=== PATIENT | female | born 1990 | race Caucasian/White ===

== ENCOUNTER 2017-12-10 17:28 | Emergency (ER) | payer OTHER ==
[2017-12-10 17:49] VITALS: TEMP 98.1; BMI 37.4
--- NOTE | 2017-12-10 17:52 | PDOC ---
Rapid Medical Evaluation Time Seen by Provider: 12/10/17 17:45 Medical Evaluation: Allergies Allergy/AdvReac Type Severity Reaction Status Date / Time No Known Allergies Allergy Verified 10/16/16 11:57 12/10/17 17:45 The patient presents with a chief complaint of: Vaginal bleeding and cramping for 4 days. Unsure how far along she is I have performed a brief in-person evaluation of this patient; Pertinent physical exam findings: ambulatory, in no respiratory distress. TTP lower abdomen. No focal findings I have ordered the following: CBC, Beta hcg, type and screen, UA, UC, transvaginal US The patient will proceed to the ED for further evaluation.
[2017-12-10 18:07] LABS: BASO % 0.7 % (0-2.0); EOS % 2.6 % (0-4.5); HEMATOCRIT 39.4 % (32.4-45.2); HEMOGLOBIN 13.1 GM/dL (10.7-15.3); LYMPH % 25.8 % (8-40); MCH 28.2 pg (25.7-33.7); MCHC 33.3 g/dl (32.0-36.0); MEAN CELL VOLUME 84.7 fl (80-96); MEAN PLT VOLUME 8.7 fl (7.5-11.1); MONO % 6.2 % (3.8-10.2); NEUT % 64.7 % (42.8-82.8); PLATELET COUNT 243 K/MM3 (134-434); RBC 4.65 M/mm3 (3.60-5.2); RDW 13.5 % (11.6-15.6); WHITE BLOOD COUNT 9.2 K/mm3 (4.0-10.0)
[2017-12-10 18:36] LABS: URINE APPEARANCE CLOUDY; URINE BILIRUBIN NEGATIVE (NEGATIVE); URINE BLOOD 3+ (NEGATIVE); URINE COLOR YELLOW; URINE GLUCOSE (UA) NEGATIVE (NEGATIVE); URINE KETONE NEGATIVE (NEGATIVE); URINE LEUK ESTERASE TRACE (NEGATIVE); URINE NITRITE NEGATIVE (NEGATIVE); URINE PROTEIN NEGATIVE (NEGATIVE); URINE UROBILINOGEN NEGATIVE mg/dL (0.2-1.0)
[2017-12-10 18:57] LABS: ALBUMIN 3.1 g/dl (3.4-5.0); ANION GAP 12 (8-16); BILIRUBIN,TOTAL 0.1 mg/dL (0.2-1.0); BLOOD UREA NITROGEN 13 mg/dL (7-18); CALCIUM 9.1 mg/dL (8.5-10.1); CHLORIDE 104 mmol/L (98-107); CO2 21 mmol/L (21-32); CREATININE 0.7 mg/dL (0.55-1.02); GLUCOSE,RANDOM 95 mg/dL (74-106); POTASSIUM 3.9 mmol/L (3.5-5.1); SGOT/AST 7 U/L (15-37); SGPT/ALT 18 U/L (12-78); SODIUM 137 mmol/L (136-145); TOT PROT 6.8 g/dl (6.4-8.2)
[2017-12-10 18:58] LABS: ALK PHOS 82 U/L (45-117)
[2017-12-10 19:11] LABS: EPI CELLS MODERATE /HPF (FEW); URINE BACTERIA RARE /hpf (NONE SEEN); URINE CASTS 2 /hpf; URINE CRYSTALS FEW /hpf (NONE SEEN)
--- NOTE | 2017-12-10 19:14 | PDOC ---
History of Present Illness - General Chief Complaint: Vaginal Bleeding Stated Complaint: VAGINAL BLEEDING/7 WKS Time Seen by Provider: 12/10/17 17:45 - History of Present Illness Initial Comments: 12/10/17 19:29 The patient is a 23 year old female, , approximately 7 weeks by LMP and home tests, who presents to the ED complaining of approximately 4 days of suprapubic cramping and vaginal bleeding. She states she noticed a small amount of bleeding 4 days ago which has been progressively decreasing. The patient denies any fever or chills. She denies nausea, vomiting , or diarrhea. She denies any urinary complaints. Past History - Past Medical History Allergies/Adverse Reactions: Allergies Allergy/AdvReac Type Severity Reaction Status Date / Time No Known Allergies Allergy Verified 12/10/17 17:45 Home Medications: Ambulatory Orders Nitrofurantoin Monohyd/M-Cryst [Macrobid -] 100 mg PO BID #14 capsule 12/10/17 Asthma: Yes COPD: No - Reproductive History Is Patient Now?: Yes (#): 2 Para: 1 - Immunization History Immunization Up to Date: Yes - Suicide/Smoking/Psychosocial Hx Smoking Status: No Smoking History: Never smoked Number of Cigarettes Smoked Daily: 0 Hx Alcohol Use: No Drug/Substance Use Hx: No Substance Use Type: None Review of Systems - Review of Systems Comments:: 12/10/17 19:29 "GENERAL/CONSTITUTIONAL: No fever or chills. No weakness. HEAD, EYES, EARS, NOSE AND THROAT: No change in vision. No ear pain or discharge. No sore throat. CARDIOVASCULAR: No chest pain or shortness of breath. RESPIRATORY: No cough, wheezing, or hemoptysis. GASTROINTESTINAL: No nausea, vomiting, diarrhea or constipation. GENITOURINARY: +Vaginal spotting, No dysuria, frequency, or change in urination. MUSCULOSKELETAL: No joint or muscle swelling or pain. No neck or back pain. SKIN: No rash NEUROLOGIC: No headache, vertigo, loss of consciousness, or change in strength/ sensation. ENDOCRINE: No increased thirst. No abnormal weight change. HEMATOLOGIC/LYMPHATIC: No anemia, easy bleeding, or history of blood clots. ALLERGIC/IMMUNOLOGIC: No hives or skin allergy. " *Physical Exam - Vital Signs Last Vital Signs Temp Pulse Resp BP Pulse Ox 98.1 F 95 H 19 114/65 98 12/10/17 17:45 12/10/17 17:45 12/10/17 17:45 12/10/17 17:45 12/10/17 17:45 - Physical Exam Comments: 12/10/17 19:30 "GENERAL: Awake, alert, and fully oriented, in no acute distress HEAD: No signs of trauma EYES: PERRLA, EOMI, sclera anicteric, conjunctiva clear ENT: Auricles normal inspection, hearing grossly normal, nares patent, oropharynx clear without exudates. Moist mucosa NECK: Nontender, no stepoffs, Normal ROM, supple, no lymphadenopathy, JVD, or masses LUNGS: Breath sounds equal, clear to auscultation bilaterally. No wheezes, and no crackles HEART: Regular rate and rhythm, normal S1 and S2, no murmurs, rubs or gallops ABDOMEN: Soft, nontender, normoactive bowel sounds. No guarding, no rebound. No masses EXTREMITIES: Normal range of motion, no edema. No clubbing or cyanosis. No cords, erythema, or tenderness NEUROLOGICAL: Cranial nerves II through XII intact. 5/5 strength and sensation in all extremities, Normal speech, normal gait, normal cerebellar function SKIN: Warm, Dry, normal turgor, no rashes or lesions noted. : os closed, no blood in vault, no CMT, no adnexal masses or tenderness ED Treatment Course - LABORATORY CBC & Chemistry Diagram: 12/10/17 17:54 12/10/17 17:54 - ADDITIONAL ORDERS Additional order review: Laboratory Results 12/10/17 12/10/17 18:20 17:54 Sodium 137 Potassium 3.9 Chloride 104 Carbon Dioxide 21 Anion Gap 12 BUN 13 Creatinine 0.7 Creat Clearance w eGFR > 60 Random Glucose 95 Calcium 9.1 Total Bilirubin 0.1 L AST 7 L ALT 18 Alkaline Phosphatase 82 Total Protein 6.8 Albumin 3.1 L Beta HCG, Quant 98284.0 Urine Color Yellow Urine Appearance Cloudy Urine pH 5.0 D Ur Specific [place] 1.018 Urine Protein Negative Urine Glucose (UA) Negative Urine Ketones Negative Urine Blood 3+ H Urine Nitrite Negative Urine Bilirubin Negative Urine Urobilinogen Negative Ur Leukocyte Esterase Trace 12/10/17 17:54 RBC 4.65 MCV 84.7 MCHC 33.3 RDW 13.5 MPV 8.7 Neutrophils % 64.7 Lymphocytes % 25.8 Monocytes % 6.2 Eosinophils % 2.6 Basophils % 0.7 Medical Decision Making - Medical Decision Making 12/10/17 19:31 27 F with + UPT at home, presenting with vaginal spotting and cramps. Ectopic vs spontaneous Ab. - Labs, HCG, T&S - TVUS 12/10/17 19:39 TVUS shows viable 6 week old . Pt with O+ blood UA with possible UTI, will cover with macrobid. Pt is well appearing, with normal vitals. Clinically stable for DC at this time. I discussed the physical exam findings, ancillary test results and final diagnoses with the patient. I answered all of the patient's questions. The patient was satisfied with the care received and felt comfortable with the discharge plan and treatment plan. The patient agrees to follow up with the primary care physician within 24-72 hours. *DC/Admit/Observation/Transfer Diagnosis at time of Disposition: Vaginal bleeding during - Discharge Dispostion Disposition: HOME - Prescriptions Prescriptions: Nitrofurantoin Monohyd/M-Cryst [Macrobid -] 100 mg PO BID #14 capsule - Referrals Referrals: Jessie Boyer MD [Staff Physician] - - Patient Instructions Printed Discharge Instructions: DI for Vaginal Bleeding During Additional Instructions: You have a urine infection. Take the antibiotics as prescribed to treat it. Your ultrasound showed a that is 6 weeks old. Call the above number to make a follow up with an computer technical support specialist. You will need care. If you experience worsening pain, bleeding, or any other concerning symptoms, return to the ER immediately. - Post Discharge Activity - Attestations Physician Attestion: 12/10/17 19:39 I, Dr. Peter Williamson MD, attest that this document has been prepared under my direction and personally reviewed by me in its entirety. I further attest, that it accurately reflects all work, treatment, procedures and medical decision -making performed by me.
[2017-12-10 20:20] VITALS: BP 109/68; PULSE 86
== END 2017-12-10 19:55 | disposition home or self-care (01) ==
LOC: JER 17:28
DX: O26.891 Other specified pregnancy related conditions, first trimester (principal); O20.8 Other hemorrhage in early pregnancy; Z3A.01 Less than 8 weeks gestation of pregnancy
CPT/HCPCS: 36415; 76801-TC; 80053; 81003; 81015; 84702; 85025; 86850; 86900; 86901; 87086; 99283-25

== ENCOUNTER 2018-07-29 14:30 | Inpatient (IN) | payer OTHER ==
[2018-08-02] MEDS: ELECTROLYTE-148 SOLN 1,000 ML IV SCH ×2 (10:00→11:06)
[2018-08-02] MEDS ORDERED: CITRIC ACID/SODIUM CITRATE 30 ML UNIT-DOSE CUP PO ONE (10:20)
[2018-08-02] MEDS ORDERED: CEFAZOLIN 2 GM in DEXTROSE 5%-WATER - 50 ML IVPB ONE (10:23)
--- NOTE | 2018-08-02 10:27 | HP ---
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: Alzheimer's, CVA, Dementia, Migraine, Multiple Sclerosis, Peripheral Neuropathy, Parkinson's, Seizure, Syncope, TIA, Vertigo, Other Cardiovascular: No: AFIB, Aneurysm, Aortic Insufficiency, Aortic Stenosis, CAD, CHF, Deep Vein Thrombosis, HTN, Hyperlipdemia, DE, Mitral Insufficiency, Mitral Stenosis, Murmur, Pulmonary Hypertension, Other Pulmonary: No: Asthma, Bronchitis, Cancer, COPD, O2 Dependent, Pneumonia, Previously Intubated, Pulmonary Embolus, Pulmonary Fibrosis, Sleep Apnea, Other Gastrointestinal: No: Ascites, Cancer, Constipation, Crohn's Disease, Diverticulitis, Diverticulosis, Esophageal Varices, Gastritis, GERD, GI Bleed, Hemorrhoids, Hiatal Hernia, Inflamatory Bowel Disease, Irritable Bowel Disease, Pancreatitis, Peptic Ulcer Disease, Ulcerative Colitis, Other Hepatobiliary: No: Cirrhosis, Cholelithiasis, Cholecystitis, Choledocholithiasis , Hepatitis A, Hepatitis B, Hepatitis C, Other - Past Surgical History Hx Myomectomy: No Hx Transabdominal Cerclage: No - Smoking History Smoking history: Never smoked Aproximately how many cigarettes per day: 0 - Alcohol/Substance Use Hx Alcohol Use: No Home Medications - Allergies Allergies/Adverse Reactions: Allergies Allergy/AdvReac Type Severity Reaction Status Date / Time No Known Allergies Allergy Verified 12/10/17 17:45 - Home Medications Home Medications: Ambulatory Orders Nitrofurantoin Monohyd/M-Cryst [Macrobid -] 100 mg PO BID #14 capsule 12/10/17 Review of Systems - Review of Systems Constitutional: denies: No Symptoms, Chills, Diaphoresis, Fever, Lethargy, Loss of Appetite, Malaise, Night Sweats, Unintentional Wgt. Loss, Weakness, Other Eyes: denies: No Symptoms, Blind Spots, Blurred Vision, Double Vision, Eye Pain , Floaters, Photophobia, Recent Change in Vision, Other HENT: denies: No Symptoms, Difficult Swallowing, Ear Discharge, Ear Pain, Epistaxis, Gingival Bleeding, Hearing Loss, Mouth Swelling, Nasal Congestion, Ocular Prosthesis, Throat Pain, Toothache, Ringing in Ears, Other Neck: denies: No Symptoms, Decreased ROM, Lumps, Pain on Movement, Stiffness, Swollen Glands, Tenderness, Other Cardiovascular: denies: No Symptoms, Chest Pain, Edema, Palpitations, Shortness of Breath, Other Respiratory: denies: No Symptoms, Cough, Exercise Intolerance, Hemoptysis, Orthopnea, PND, Snoring, SOB, SOB on Exertion, Wheezing, Other Gastrointestinal: denies: No Symptoms, Abdominal Pain, Bloating, Constipation, Diarrhea, Dysphagia, Indigestion, Melena, Nausea, Rectal Bleeding, Vomiting, Vomiting Blood, Other Genitourinary: denies: No Symptoms, Burning, Discharge, Dysuria, Flank Pain, Frequency, Hematuria, Incontinence, Lesions, Menses, Pain, Testicular Mass, Testicular Pain, Testicular Swelling, Urgency, Vaginal Bleeding, Other Physical Exam - Maternity - Abdominal Exam/OB Number of Fetuses: Single Presentation: Vertex Contractions: Yes Regularity: Irregular Intensity: Unaware Monitor Mode: External Category: I Decelerations: None - Vaginal Exam/OB Vaginal Bleediing: No Speculum Exam: No - Physical Exam Edema: Yes Problem List - Problems (1) H/O: Code(s): Z98.891 - HISTORY OF UTERINE SCAR FROM PREVIOUS SURGERY Assessment/Plan 28yo @ 39wks here for RLTCS Admit to L&D NPO, IVFs Ancef 2g SCDs Discussed risk of procedure- including bleeding requiring transfusion, infection and injury to bladder/bowel/tubes/ovaries/nerves/arteries/veins. Importance of early ambulation to avoid DVTs discussed. All questions answered. Consents signed. Nicky Main MD
[2018-08-02] MEDS ORDERED: GENTAMICIN INJECTION 400 MG in SODIUM CHLORIDE 100 ML IVPB ONE (10:39)
[2018-08-02 11:04] VITALS: BMI 44.2
[2018-08-02 11:23] LABS: INR 0.97 (0.83-1.09); PROTHROMBIN TIME (PATIENT) 11.4 SEC (9.7-13.0)
[2018-08-02 11:26] LABS: ACTIVATED PTT 27.2 SECONDS (25.2-36.5)
[2018-08-02] MEDS ORDERED: ONDANSETRON 4 MG/2 ML VIAL IVPUSH PRN (11:31)
[2018-08-02] MEDS ORDERED: morphine SULFATE/Preservative Free 0.5 MG/ML (1cc Syringe) EP ONE (11:31)
[2018-08-02] MEDS ORDERED: IBUPROFEN 600 MG TABLET (FP) PO PRN (11:33)
[2018-08-02] MEDS ORDERED: CLINDAMYCIN PHOSPHATE 600 MG/4 ML VIAL ONE (11:43)
[2018-08-02] MEDS ORDERED: GENTAMICIN SO4 80 MG/2 ML VIAL ONE (11:44)
[2018-08-02] MEDS ORDERED: OXYTOCIN 20 UNITS in 0.9% NS 20 UNIT/1,000 ML INFUS.BAG IV ONE ×2 (11:45→13:34)
[2018-08-02] MEDS ORDERED: GENTAMICIN INJECTION 160 MG in SODIUM CHLORIDE 100 ML IVPB ONE (12:15)
[2018-08-02] MEDS ORDERED: CLINDAMYCIN 600MG PREMIX IVPB 600 MG/50 ML BAG IVPB ONE (12:15)
[2018-08-02] MEDS ORDERED: OXYTOCIN 10 UNITS/ML VIAL ONE (12:33)
[2018-08-02] MEDS ORDERED: METHYLERGONOVINE MALEATE 0.2 MG/1 ML AMP IM PRN (13:23)
[2018-08-02] MEDS ORDERED: BENZOCAINE 20% 57 GM BOTTLE TP PRN (13:23)
[2018-08-02] MEDS ORDERED: WITCH HAZEL 50% (TUCKS) 40 PAD/JAR PAD TP PRN (13:23)
[2018-08-02] MEDS ORDERED: BENZOCAINE 28 GM HEMORRHOIDAL OINTMENT TP PRN (13:23)
--- NOTE | 2018-08-02 13:23 | OP ---
Operative Note - Note: Operative Date: 08/02/18 Pre-Operative Diagnosis: 39week , Prior , Elective Repeat C- Sections Operation: Repeat Low Transverse Delivery Findings: VMI, ALLISON, no nuchal or meconium. Apgars 9/9. Weight pending. Tubes and ovaries not seen secondary to dense adhesions Implants: surgicele Post-Operative Diagnosis: Same as Pre-op Surgeon: Candida Main Government Relations Analyst: Ortega Hope Anesthesia: Spinal Estimated Blood Loss (mls): 900
[2018-08-02] MEDS ORDERED: IBUPROFEN 800 MG/8 ML IJ IVPB ONE (14:34)
[2018-08-02] MEDS: IBUPROFEN 800 MG/8 ML IJ IVPB PRN ×2 (14:45→22:02)
[2018-08-02] MEDS ORDERED: ALBUTEROL SO4 8 GM HFA INHALER IH PRN (16:33)
[2018-08-02] MEDS: FERROUS SO4 325 MG TABLET (FP) PO SCH (22:00)
[2018-08-03] MEDS: SIMETHICONE 80 MG TAB.CHEW (FP) PO PRN ×4 (05:53→22:37)
[2018-08-03] MEDS: IBUPROFEN 600 MG TABLET (FP) PO PRN ×4 (05:54→22:37)
[2018-08-03] MEDS: ACETAMINOPHEN 325 MG TABLET (FP) PO PRN ×4 (05:56→22:38)
[2018-08-03] MEDS: FERROUS SO4 325 MG TABLET (FP) PO SCH ×2 (10:10→21:25)
[2018-08-03] MEDS: PRENATAL VITAMINS W/ FOLIC ACID TABLET (FP) PO SCH (10:11)
--- NOTE | 2018-08-03 10:54 | PN ---
Progress Note (short form) - Note Progress Note: POD #1 - s/p under spinal anesthesia with duramorph. VSS. Pt. doing well, walking about the room comfortably. C/o some itching - Benadryl given. No apparent anesthetic complications noted. Continue current care.
--- NOTE | 2018-08-03 10:58 | PN ---
Post Progress Note - Subjective Subjective: 28 yo Para 2 status post repeat , seen and evaluated. She's lying comfortably in bed. No complaints. Post Day: 1 Type of Delivery: Repeat C/S Vital Signs: Vital Signs Temperature 98.3 F 08/03/18 08:26 Pulse Rate 89 08/03/18 08:26 Respiratory Rate 20 08/03/18 09:58 Blood Pressure 106/55 L 08/03/18 08:26 O2 Sat by Pulse Oximetry (%) 100 08/02/18 14:15 Breast Exam: Yes: Soft Uterus: Yes: Fundus Firm Incision: Yes: Dressing dry and intact Abdomen/GI: Yes: Abdomen soft, Tolerating PO Lochia: Yes: Rubra Lochia, amount: Small Extremities: Yes: Calves non-tender Activity: Ambulating Problem List - Problems (1) Status post repeat low transverse section Code(s): Z98.891 - HISTORY OF UTERINE SCAR FROM PREVIOUS SURGERY Assessment/Plan Status post repeat Stable Ambulation Analgesia as needed Continue routine post op care
[2018-08-03] MEDS ORDERED: BISACODYL 10 MG SUPP.RECT RC PRN (13:23)
[2018-08-03] MEDS: diphenhydrAMINE HCL 25 MG CAPSULE (FP) PO PRN ×2 (14:40→21:26)
[2018-08-03] MEDS: ELECTROLYTE-148 SOLN 1,000 ML IV SCH (21:23)
[2018-08-03] MEDS: oxyCODONE HCL 5 MG TABLET PO PRN (22:38)
[2018-08-04] MEDS: IBUPROFEN 600 MG TABLET (FP) PO PRN ×4 (02:32→22:48)
[2018-08-04] MEDS: SIMETHICONE 80 MG TAB.CHEW (FP) PO PRN ×5 (02:32→22:47)
[2018-08-04] MEDS: ACETAMINOPHEN 325 MG TABLET (FP) PO PRN ×3 (02:33→13:49)
[2018-08-04] MEDS: oxyCODONE HCL 5 MG TABLET PO PRN ×4 (02:33→22:47)
--- NOTE | 2018-08-04 08:11 | PN ---
Post Progress Note - Subjective Subjective: 28 yo Para 2 status post repeat , seen and evaluated. She's ambulating. Doing well. Post Day: 2 Type of Delivery: Repeat C/S Vital Signs: Vital Signs Temperature 98.7 F 08/03/18 22:00 Pulse Rate 114 H 08/03/18 22:00 Respiratory Rate 18 08/03/18 22:00 Blood Pressure 125/75 08/03/18 22:00 O2 Sat by Pulse Oximetry (%) 100 08/02/18 14:15 Breast Exam: Yes: Soft Uterus: Yes: Fundus Firm Incision: Yes: Dressing dry and intact Lochia: Yes: Rubra Lochia, amount: Small Extremities: Yes: Calves non-tender Activity: Ambulating Problem List - Problems (1) Status post repeat low transverse section Code(s): Z98.891 - HISTORY OF UTERINE SCAR FROM PREVIOUS SURGERY Assessment/Plan Status post repeat Stable Ambulation Analgesia as needed Continue routine post op care
[2018-08-04] MEDS ORDERED: FLU VACCINE QUAD 60 MCG/0.5 ML (MDV 18-19) IM ONE (10:00)
[2018-08-04] MEDS: PRENATAL VITAMINS W/ FOLIC ACID TABLET (FP) PO SCH (10:30)
[2018-08-04] MEDS: FERROUS SO4 325 MG TABLET (FP) PO SCH ×2 (10:30→21:09)
--- NOTE | 2018-08-04 13:55 | PN ---
Post Progress Note Type of Delivery: Repeat C/S Vital Signs: Vital Signs Temperature 98.2 F 08/04/18 08:47 Pulse Rate 102 H 08/04/18 08:47 Respiratory Rate 20 08/04/18 08:47 Blood Pressure 116/75 08/04/18 08:47 O2 Sat by Pulse Oximetry (%) 100 08/02/18 14:15 Uterus: Yes: Fundus Firm Incision: Yes: Dressing dry and intact Abdomen/GI: Yes: Abdomen soft, Passing flatus, Tolerating PO Lochia, amount: Small Extremities: Yes: Edema Activity: Ambulating (POD#1 from RLTCS. Some incisional discomfort. +flatus. No BM) Problem List - Problems (1) H/O: Code(s): Z98.891 - HISTORY OF UTERINE SCAR FROM PREVIOUS SURGERY Assessment/Plan 28yo s/p RLTCS, POD#2 Routine PP care OOB, ambulate PO pain control Possible d/c tomorrow if stable, pain controlled Nicky Main MD
[2018-08-04] MEDS ORDERED: DOCUSATE SODIUM 100 MG CAPSULE (FP) PO PRN (14:28)
[2018-08-04] MEDS: SENNOSIDES 8.6MG TABLET (FP) PO SCH (21:09)
[2018-08-05] MEDS: ACETAMINOPHEN 325 MG TABLET (FP) PO PRN ×3 (00:49→12:49)
[2018-08-05] MEDS: oxyCODONE HCL 5 MG TABLET PO PRN ×4 (05:00→22:48)
[2018-08-05] MEDS: SIMETHICONE 80 MG TAB.CHEW (FP) PO PRN ×5 (05:00→22:49)
[2018-08-05] MEDS: IBUPROFEN 600 MG TABLET (FP) PO PRN ×5 (05:01→22:48)
--- NOTE | 2018-08-05 07:24 | PN ---
Post Progress Note - Subjective Subjective: No issues overnight. Ambulating. Pain controlled with meds Type of Delivery: Repeat C/S Vital Signs: Vital Signs Temperature 98.2 F 08/04/18 21:00 Pulse Rate 104 H 08/04/18 21:00 Respiratory Rate 20 08/04/18 21:00 Blood Pressure 123/81 08/04/18 21:00 O2 Sat by Pulse Oximetry (%) 100 08/02/18 14:15 Uterus: Yes: Fundus below umbilicus Incision: Yes: Sutures intact Abdomen/GI: Yes: Abdomen soft Lochia: Yes: Rubra Lochia, amount: Small Extremities: Yes: Edema Activity: Ambulating Problem List - Problems (1) H/O: Code(s): Z98.891 - HISTORY OF UTERINE SCAR FROM PREVIOUS SURGERY Assessment/Plan 28yo s/p RLTCS, POD#3 Routine PP care OOB, ambulate PO pain control Anticipate d/c to home by POD#4 Nicky Main MD
[2018-08-05 08:03] LABS: BASO % 0.6 % (0-2.0); EOS % 4.3 % (0-4.5); HEMATOCRIT 27.4 % (32.4-45.2); HEMOGLOBIN 8.7 GM/dL (10.7-15.3); LYMPH % 19.4 % (8-40); MCH 26.3 pg (25.7-33.7); MCHC 31.7 g/dl (32.0-36.0); MEAN PLT VOLUME 8.4 fl (7.5-11.1); MONO % 5.6 % (3.8-10.2); NEUT % 70.1 % (42.8-82.8); PLATELET COUNT 191 K/MM3 (134-434); RBC 3.29 M/mm3 (3.60-5.2); RDW 16.5 % (11.6-15.6); WHITE BLOOD COUNT 7.5 K/mm3 (4.0-10.0)
[2018-08-05] MEDS: FERROUS SO4 325 MG TABLET (FP) PO SCH ×2 (10:19→21:30)
[2018-08-05] MEDS: PRENATAL VITAMINS W/ FOLIC ACID TABLET (FP) PO SCH (10:19)
[2018-08-05] MEDS: BENZOCAINE/MENTH/CETYLPYRD CL 1 EACH LOZENGE MM PRN (19:48)
[2018-08-05] MEDS: SENNOSIDES 8.6MG TABLET (FP) PO SCH (21:30)
[2018-08-06] MEDS: SIMETHICONE 80 MG TAB.CHEW (FP) PO PRN ×3 (04:10→14:15)
[2018-08-06] MEDS: IBUPROFEN 600 MG TABLET (FP) PO PRN ×3 (04:11→14:16)
[2018-08-06] MEDS: ACETAMINOPHEN 325 MG TABLET (FP) PO PRN (04:11)
[2018-08-06] MEDS: oxyCODONE HCL 5 MG TABLET PO PRN ×3 (04:11→14:15)
[2018-08-06] MEDS: BENZOCAINE/MENTH/CETYLPYRD CL 1 EACH LOZENGE MM PRN ×2 (04:17→09:49)
[2018-08-06] MEDS: PRENATAL VITAMINS W/ FOLIC ACID TABLET (FP) PO SCH (09:47)
[2018-08-06] MEDS: FERROUS SO4 325 MG TABLET (FP) PO SCH (09:47)
[2018-08-06 12:47] VITALS: BP 132/80; PULSE 96; TEMP 98.2
--- NOTE | 2018-08-11 17:38 | PATH ---
Surgical Pathology Report Patient Name: SYEDA العلي Med. Rec. #: [id number] /Age/Gender: 1990 (Age: 28) / F Account: [id number] Location: 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 Electronically Signed Patria Johnston M.D. Gross Description The specimen is received fresh labeled placenta and is a 515 gram, 16.0 x 15.0 x 3.4 cm. placenta with attached membranes and umbilical cord. The attached membranes are stein, translucent with focal opacities and insert marginally. The umbilical cord measures 42 cm. in length and averages 1.0 cm. in diameter. The cord inserts eccentrically, 3 cm. to the nearest margin. No true knots or strictures are identified. Cut surface of the umbilical cord reveals 3 vessels. The surface is pretty-blue with minimal fibrin deposition and appropriate caliber vessels. The maternal surface is red-brown with focal defects. Sectioning reveals red-brown, spongy parenchyma. No lesions are identified. Vice President Consulting Services sections are submitted in three cassettes as follows: 1- membrane rolls and umbilical cord; 2-3- full thickness sections of placenta. /08/10/2018 [facility]08/10/2018
--- NOTE | 2018-08-18 16:17 | DS ---
Physical Examination Vital Signs: Vital Signs Temperature 98.2 F 08/06/18 09:00 Pulse Rate 96 H 08/06/18 09:00 Respiratory Rate 20 08/06/18 09:00 Blood Pressure 132/80 08/06/18 09:00 O2 Sat by Pulse Oximetry (%) 100 08/02/18 14:15 Constitutional: Yes: Well Nourished, No Distress, Calm Eyes: Yes: WNL, Conjunctiva Clear, EOM Intact Respiratory: Yes: WNL, Regular, CTA Bilaterally Gastrointestinal: Yes: WNL, Normal Bowel Sounds. No: Soft, Abdomen, Obese, Ascites, Distention, Hematemesis, Hemorrhoids, Hepatomegaly, Hernia, Hyperactive Bowel Sounds, Hypoactive Bowel Sounds, Melena, Palpable Mass, Pulsatile Mass, Rectal Bleeding, Splenomegaly, Tenderness, Tenderness, Epigastrium, Tenderness, Rebound, Vomiting, Other Extremities: Yes: WNL Edema: Yes Labs: CBC, BMP 08/05/18 07:15 Discharge Summary Reason For Visit: C SECTION Procedures: Principal: Hospital Course: Patient presented for a repeat Delivery. She had an uncomplicated course and met all milestones. She was discharged home on POD#4 Condition: Good - Instructions Diet, Activity, Other Instructions: Pt instructed to follow up in clinic in 2 weeks. Disposition: HOME - Home Medications Comprehensive Discharge Medication List: Ambulatory Orders Vitamins (Sjr) - 1 tab PO DAILY 08/02/18 Ibuprofen 600 mg PO Q6H PRN #30 tablet 08/05/18 Oxycodone HCl/Acetaminophen [Percocet 5-325 mg Tablet -] 1 - 2 tab PO Q6H PRN # 20 tab MDD 20 08/05/18
--- NOTE | 2018-08-18 18:32 | OP ---
DATE OF OPERATION: 08/02/2018 PREOPERATIVE DIAGNOSES: A 39-week , prior section, desires elective repeat section. POSTOPERATIVE DIAGNOSES: A 39-week , prior section, desires elective repeat section. PROCEDURE: Repeat low-transverse delivery. SURGEON: Candida Main MD BAKER BISCUIT: ANTOINE Linder ANESTHESIA: Spinal. IV FLUIDS: Per Anesthesia record. ESTIMATED BLOOD LOSS: 900. URINE: 100 mL of clear urine at the end of procedure. FINDINGS: Viable male infant, ALLISON position. No nuchal or meconium. Apgars 9 and 9. Weight was pending at time of procedure. Tubes and ovaries not seen secondary to dense adhesions. COMPLICATIONS: None. CONDITION: Stable to recovery. NATURE OF PROCEDURE: After appropriate consents were signed, patient was taken to the operating room, where spinal anesthesia was administered. She was placed in supine position with left lateral tilt. Dubose catheter was placed. Abdomen was prepped and draped in the normal sterile fashion. A Pfannenstiel skin incision was made through the prior Pfannenstiel and carried down to the underlying layers, in which the fascia was nicked in the midline with a scalpel. The fascia was then extended bilaterally with the Grimm scissors. The inferior aspect of the fascia was grasped with a Taya clamp, tented upward, and the rectus muscles were dissected off bluntly and with the Grimm scissors. Attention was then paid to the superior aspect, which was taken down in a similar fashion. The muscles were in the midline after elevating them and gentle dissection with the scalpel needle. The peritoneum was entered bluntly. Adhesions from the anterior abdominal wall to the uterus on the lateral edges were noted. The uterus was incised in a low transverse fashion and extended manually. Clear amniotic fluid was noted. The 's head was delivered atraumatically without any difficulty, as was the remaining body. The cord was clamped and cut. The was handed off to the pediatric staff. The placenta was removed manually. The uterus was cleared of all clot and debris. The hysterotomy was closed with a 0 Vicryl in a single layer. After a single layer was placed, bleeding edges were still noted on both edges of the hysterotomy and were reinforced with additional suture in addition to Bovie for hemostasis. Surgicel was placed over the hysterotomy to help maintain hemostasis. Neither ovary or tube could be appreciated due to adhesions and lack of mobility of the uterus, and inability to palpate the adnexa secondary to adhesions. Rectus muscles were reapproximated with 2-0 chromic. The fascia was closed with 0 Vicryl. Skin was closed with a 4-0 Vicryl as well. Appropriate dressings and bandages were placed. The patient received 2 g of Ancef at the start of the procedure. All lap and sponge counts were correct x3. The patient was taken to the recovery room in stable condition. MD RAHEEL LUNDBERG/[id number]
== END 2018-08-06 15:45 | disposition home or self-care (01) | DRG 540 ==
LOC: JLDR 08-02 09:28 → J3W 08-02 15:00
PROVIDERS: ADMIT Obstetrics & Gynecology; ATTEND Obstetrics & Gynecology
PROC: 10D00Z1 Extraction of Products of Conception, Low, Open Approach (ICD-10-PCS; principal; 2018-08-02)
DX: O34.211 Maternal care for low transverse scar from previous cesarean delivery (principal); K66.0 Peritoneal adhesions (postprocedural) (postinfection); Z3A.39 39 weeks gestation of pregnancy; Z37.0 Single live birth
CPT/HCPCS: 36415; 85025; 85610; 85730; 86593; 88307-TC; 90688; G0008

== ENCOUNTER 2018-12-02 15:55 | Emergency (ER) | payer OTHER ==
[2018-12-02 16:08] VITALS: BP 149/93; PULSE 116; TEMP 98.8; BMI 38.2
--- NOTE | 2018-12-02 16:12 | PDOC ---
Rapid Medical Evaluation Chief Complaint: Cold Symptoms Time Seen by Provider: 12/02/18 16:09 Medical Evaluation: Allergies Allergy/AdvReac Type Severity Reaction Status Date / Time cefazolin Allergy Swelling Verified 12/02/18 16:04 Vital Signs Temp Pulse Resp BP Pulse Ox 98.8 F 116 H 16 149/93 96 12/02/18 16:05 12/02/18 16:05 12/02/18 16:05 12/02/18 16:05 12/02/18 16:05 12/02/18 16:09 I have performed a brief in-person evaluation of this patient. The patient presents with a chief complaint of: h/o Asthma present with 6 weeks h/o persistent dry cough, wheezing, nasal congestion, runny nose and tactile fever. report using rescue inhaler prior to ED visit Pertinent physical exam findings: A&O x 3. mild diffused wheezing. no respiratory distress. heart RRR I have ordered the following: hcg, CXR The patient will proceed to the ED for further evaluation. Discharge Disposition - Diagnosis URI (upper respiratory infection) Qualifiers: URI type: unspecified URI Qualified Code(s): J06.9 - Acute upper respiratory infection, unspecified - Discharge Dispostion Condition at time of disposition: Stable - Referrals - Patient Instructions - Post Discharge Activity
--- NOTE | 2018-12-02 17:43 | PDOC ---
History of Present Illness - General Chief Complaint: Cold Symptoms Stated Complaint: COLD SYMPTOMS Time Seen by Provider: 12/02/18 16:09 History Source: Patient Exam Limitations: No Limitations - History of Present Illness Initial Comments: 12/02/18 17:43 28 year old female 3 months presents with asthma exacerbation, fever , chills, and chest discomfort from forcefully coughing x 6 weeks. Reports using otc medication. Also sick contact from 3 month old that is also sick. 12/02/18 19:13 Timing/Duration: reports: getting worse Severity: reports: moderate Possible Cause: Yes: other (sick contact ) Modifying Factors: improves with: albuterol nebulizer, coughing Associated Symptoms: reports: cough, fever/chills, nasal congestion, nasal drainage, wheezing Aspirin Received prior to arrival: Yes: no aspirin today ASA Contraindications(Core Measure): No: Allergy Beta Taylor Contraindications(Core Measure): Yes: Not Prescribed Beta Taylor Given by EMS(Core Measure): No Beta Taylor Taken at Home(Core Measure): No Beta Taylor Not Indicated at this Time(Core Measure): No Past History - Travel Traveled outside of the country in the last 30 days: No Close contact w/someone who was outside of country & ill: No - Past Medical History Allergies/Adverse Reactions: Allergies Allergy/AdvReac Type Severity Reaction Status Date / Time cefazolin Allergy Swelling Verified 12/02/18 16:04 Home Medications: Ambulatory Orders Azithromycin [Zithromax 250mg Tablets -] 250 mg PO UTDICT #6 tab 12/02/18 Ibuprofen 600 mg PO TID #20 tablet 12/02/18 Prednisone [Deltasone] 40 mg PO DAILY #4 tablet 12/02/18 Asthma: Yes (last attack years ago) Cancer: No Cardiac Disorders: No COPD: No Diabetes: No HTN: No Seizures: No Thyroid Disease: No - Reproductive History (#): 2 Para: 1 - Immunization History Immunization Up to Date: Yes - Suicide/Smoking/Psychosocial Hx Smoking Status: No Smoking History: Never smoked Have you smoked in the past 12 months: No Number of Cigarettes Smoked Daily: 0 Information on smoking cessation initiated: No Hx Alcohol Use: No Drug/Substance Use Hx: No Substance Use Type: None Hx Substance Use Treatment: No Respiratory Specific PMHX - Complaint Specific PMHX Angina: No Bronchitis: No Pneumonia: No Pulmonary Embolus: No TB (Tuberculosis): No Review of Systems - Review of Systems Able to Perform ROS?: Yes Is the patient limited Maltese proficient: No Constitutional: Yes: Chills, Fever, Malaise HEENTM: Yes: Nose Pain, Nose Congestion Respiratory: Yes: Cough, Wheezing Cardiac (ROS): Yes: Chest Tightness ABD/GI: No: Diarrhea, Difficulty Swallowing, Poor Appetite, Poor Fluid Intake, Vomiting, Abdominal cramping : No: Dysuria, Hematuria Musculoskeletal: No: Back Pain Neurological: No: Numbness, Tingling *Physical Exam - Vital Signs Last Vital Signs Temp Pulse Resp BP Pulse Ox 98.8 F 116 H 16 149/93 96 12/02/18 16:05 12/02/18 16:05 12/02/18 16:05 12/02/18 16:05 12/02/18 16:05 - Physical Exam General Appearance: Yes: Nourished, Appropriately Dressed HEENT: positive: Pharyngeal Erythema, Tonsillar Erythema. negative: Tonsillar Exudate Neck: positive: Supple. 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 chest xray neb treatment prednisone ibuprofen lungs clearer than before Rx: azithromycin prednsione ibuprofen *DC/Admit/Observation/Transfer Diagnosis at time of Disposition: URI (upper respiratory infection) Qualifiers: URI type: unspecified viral URI Qualified Code(s): J06.9 - Acute upper respiratory infection, unspecified Asthma exacerbation Qualifiers: Asthma severity: mild Asthma persistence: intermittent Qualified Code(s): J45.21 - Mild intermittent asthma with (acute) exacerbation - Discharge Dispostion Disposition: HOME Condition at time of disposition: Good Decision to Admit order: No - Prescriptions Prescriptions: Azithromycin [Zithromax 250mg Tablets -] 250 mg PO UTDICT #6 tab Ibuprofen 600 mg PO TID #20 tablet Prednisone [Deltasone] 40 mg PO DAILY #4 tablet - Referrals Referrals: Addi Givens [Primary Care Provider] - - Patient Instructions Printed Discharge Instructions: How to Avoid a Cold or Flu, Asthma -- Adult Additional Instructions: Please stay hydrated drink plenty fluids Use albuterol pump every 4 hours for 3 days take medication as prescribed and call primary physician for follow up appointment - Post Discharge Activity Forms/Work/School Notes: Back to Work
[2018-12-02] MEDS ORDERED: ALBUTEROL SO4 2.5/IPRATROPIUM 0.5 INH SOL 3 ML VIAL.NEB. NEB ONE (17:54)
[2018-12-02] MEDS: ALBUTEROL SO4 2.5/IPRATROPIUM 0.5 INH SOL 3 ML VIAL.NEB. NEB SCH ×4 (17:59→18:40)
[2018-12-02] MEDS ORDERED: predniSONE 20 MG TABLET (UD) PO ONE (18:52)
[2018-12-02] MEDS ORDERED: predniSONE 20 MG TABLET (UD) ONE (18:57)
[2018-12-02] MEDS ORDERED: IBUPROFEN 600 MG TABLET (FP) PO ONE ×2 (19:18→19:21)
== END 2018-12-02 19:36 | disposition home or self-care (01) ==
LOC: JERFT 15:55
PROC: 3E0F7GC Introduction of Other Therapeutic Substance into Respiratory Tract, Via Natural or Artificial Opening (ICD-10-PCS; principal; 2018-12-02)
DX: J45.21 Mild intermittent asthma with (acute) exacerbation (principal); J06.9 Acute upper respiratory infection, unspecified
CPT/HCPCS: 71046-TC-FY; 84703; 87804; 99281-25

== ENCOUNTER 2019-05-25 13:07 | Emergency (ER) | payer OTHER ==
[2019-05-25] MEDS ORDERED: IBUPROFEN 600 MG TABLET (FP) PO ONE (13:16)
--- NOTE | 2019-05-25 13:16 | PDOC ---
Rapid Medical Evaluation Time Seen by Provider: 05/25/19 13:15 Medical Evaluation: Allergies Allergy/AdvReac Type Severity Reaction Status Date / Time cefazolin Allergy Swelling Verified 12/02/18 16:04 05/25/19 13:15 I have performed a brief in-person evaluation of this patient. The patient presents with a chief complaint of: left ankle pain s/p inversion of left foot Pertinent physical exam findings: 2+ DP pulse. Ambulatory. No bony tenderness. I have ordered the following: xray, motrin The patient will proceed to the ED for further evaluation. Discharge Disposition - Diagnosis Left ankle pain - Referrals - Patient Instructions - Post Discharge Activity
[2019-05-25 13:17] VITALS: BP 126/77; PULSE 93; TEMP 98.6; BMI 38.2
--- NOTE | 2019-05-25 14:28 | PDOC ---
History of Present Illness - General Chief Complaint: Injury Stated Complaint: LT ANKLE PAIN Time Seen by Provider: 05/25/19 13:15 History Source: Patient Exam Limitations: No Limitations - History of Present Illness Initial Comments: 05/25/19 14:03 28-year-old female presents to ED with complaints of pain to her left ankle since Thursday. Patient states was walking when she twisted her ankle causing discomfort and so has been wearing an air cast since then and now is concerned she may have a fracture. Patient states took no medication for the above patient denies radiation of pain, or sensory changes distal of injury. Occurred: reports: other (3 days ago) Past History - Travel Traveled outside of the country in the last 30 days: No Close contact w/someone who was outside of country & ill: No - Past Medical History Allergies/Adverse Reactions: Allergies Allergy/AdvReac Type Severity Reaction Status Date / Time cefazolin Allergy Swelling Verified 05/25/19 13:17 Home Medications: Ambulatory Orders NK [No Known Home Medication] 05/25/19 Asthma: Yes (last attack years ago) Cancer: No Cardiac Disorders: No COPD: No Diabetes: No HTN: No Seizures: No Thyroid Disease: Yes (HYPE) - Reproductive History (#): 2 Para: 1 - Immunization History Immunization Up to Date: Yes - Suicide/Smoking/Psychosocial Hx Smoking Status: No Smoking History: Never smoked Have you smoked in the past 12 months: No Number of Cigarettes Smoked Daily: 0 Hx Alcohol Use: No Drug/Substance Use Hx: No Substance Use Type: None Hx Substance Use Treatment: No Patient Lives Alone: No Lives with/in: parents Trauma Specific PMHX - Complaint Specific PMHX Back Injury: No Neck Injury: No Review of Systems - Review of Systems Able to Perform ROS?: No Is the patient limited Bulgarian proficient: No Constitutional: No: Symptoms Reported HEENTM: No: Symptoms Reported Respiratory: No: Symptoms reported Cardiac (ROS): No: Symptoms Reported ABD/GI: No: Symptoms Reported : No: Symptoms Reported Musculoskeletal: Yes: Joint Pain (left ankle), Joint Swelling (left ankle) Integumentary: Yes: Bruising, Erythema. No: Symptoms Reported Neurological: No: Symptoms reported Endocrine: No: Symptoms Reported Hematologic/Lymphatic: No: Symptoms Reported *Physical Exam - Vital Signs Last Vital Signs Temp Pulse Resp BP Pulse Ox 98.6 F 93 H 16 126/77 98 05/25/19 13:14 05/25/19 13:14 05/25/19 13:14 05/25/19 13:14 05/25/19 13:14 - Physical Exam General Appearance: Yes: Nourished, Appropriately Dressed. No: Apparent Distress Vascular Pulses: Doralis-Pedis (L): 2+ Extremity: positive: Normal Capillary Refill, Tender. negative: Normal Inspection (noted diffuse edema to the lateral aspect of left malleolus region) , Normal Range of Motion (unable to internally or externally rotate or dorsi flex) Integumentary: positive: Bruising (mild lateral aspect of left malleolus) Neurologic: positive: Motor Strength 5/5 (ambulatory) ED Treatment Course - Medications Given in the ED: ED Medications Discontinued Medications Generic Name Dose Route Start Last Admin Trade Name Freq PRN Reason Stop Dose Admin Ibuprofen 600 mg 05/25/19 13:16 05/25/19 13:27 Motrin - PO 05/25/19 13:17 600 mg ONCE ONE Administration Medical Decision Making - Medical Decision Making 05/25/19 14:09 CC: Left ankle pain after rolling it while walking on Thursday no medical treatment sought now with swelling and discomfort. Exam: Noted diffuse edema to the lateral aspect of left malleolus including limited range of motion. Plan Motrin and x-ray of the left ankle ordered 05/25/19 15:19 X-ray negative for acute pathology. Patient recommended to continue with Aircast until Thursday and then switch the Nathan wrap wearing it only during the day but removing at night. *DC/Admit/Observation/Transfer Diagnosis at time of Disposition: Left ankle pain, Sprain and strain of ankle - Discharge Dispostion Disposition: HOME Condition at time of disposition: Good - Referrals Referrals: Addi Givens [Primary Care Provider] - - Patient Instructions Printed Discharge Instructions: DI for Ankle Sprain Additional Instructions: Please continue with air cast until Thursday and then switch to an Nathan wrap wearing it only during the day but removing at night to promote some mobility. Take Motrin 400-600 mg every 8 hours for discomfort and inflammation. Elevate when not ambulatory and apply ice to the affected area until Thursday. - Post Discharge Activity
== END 2019-05-25 15:22 | disposition home or self-care (01) ==
LOC: JERFT 13:07
DX: S93.402A Sprain of unspecified ligament of left ankle, initial encounter (principal); S96.812A Strain of other specified muscles and tendons at ankle and foot level, left foot, initial encounter; X50.1XXA Overexertion from prolonged static or awkward postures, initial encounter; Y93.01 Activity, walking, marching and hiking; Y92.89 Other specified places as the place of occurrence of the external cause; Y99.8 Other external cause status; E05.90 Thyrotoxicosis, unspecified without thyrotoxic crisis or storm; Z87.09 Personal history of other diseases of the respiratory system
CPT/HCPCS: 73610-TC-LT-FY; 73630-TC-LT; 99282-25

== ENCOUNTER 2019-06-16 12:31 | Emergency (ER) | payer OTHER ==
[2019-06-16 12:39] VITALS: BP 120/74; PULSE 92; TEMP 98.2; BMI 38.2
--- NOTE | 2019-06-16 13:56 | PDOC ---
History of Present Illness - General Chief Complaint: Injury Stated Complaint: RT. ANKLE PAIN Time Seen by Provider: 06/16/19 13:03 History Source: Patient - History of Present Illness Initial Comments: 06/16/19 15:19 Chief complaint: Ankle injury Patient is a 28-year-old female who had prior surgery on the right ankle who twisted it and has pain now. Patient is ambulatory. GENERAL/CONSTITUTIONAL: No fever, weakness. dizziness HEAD, EYES, EARS, NOSE AND THROAT: No change in vision. No ear pain or discharge. No sore throat. CARDIOVASCULAR: No chest pain RESPIRATORY: No shortness of breath or cough GASTROINTESTINAL: No pain, nausea, vomiting, diarrhea or constipation GENITOURINARY: No dysuria MUSCULOSKELETAL: No neck or back pain SKIN: No rash NEUROLOGIC: No headache, vertigo, loss of consciousness, or loss of sensation. GENERAL: The patient is awake, alert, and fully oriented, in no acute distress. HEAD: Normal with no signs of trauma. EYES: Pupils equal, round and reactive to light, sclera anicteric, conjunctiva clear. ENT: pharynx: no erythema, no exudate, uvula midline NECK: supple CHEST: clear, nontender, rr ABD: soft, nontender BACK: no tenderness or signs of injury EXTREMITIES: Right ankle with mild lateral swelling, no deformity, + redness, good range of motion, neurovascular intact, no foot tenderness, mild proximal lower leg. rest of extremities, normal range of motion, no edema. NEUROLOGICAL: Normal speech, normal gait. SKIN: Warm, Dry 06/16/19 15:45 Past History - Past Medical History Allergies/Adverse Reactions: Allergies Allergy/AdvReac Type Severity Reaction Status Date / Time cefazolin Allergy Swelling Verified 06/16/19 13:10 Home Medications: Ambulatory Orders Methimazole 06/16/19 Asthma: Yes (last attack years ago) Cancer: No Cardiac Disorders: No COPD: No Diabetes: No HTN: No Seizures: No Thyroid Disease: Yes (HYPE) - Reproductive History (#): 2 Para: 1 - Immunization History Immunization Up to Date: Yes - Suicide/Smoking/Psychosocial Hx Smoking Status: No Smoking History: Never smoked Have you smoked in the past 12 months: No Number of Cigarettes Smoked Daily: 0 Information on smoking cessation initiated: No Hx Alcohol Use: No Drug/Substance Use Hx: No Substance Use Type: None Hx Substance Use Treatment: No *Physical Exam - Vital Signs Last Vital Signs Temp Pulse Resp BP Pulse Ox 98.2 F 92 H 16 120/74 96 06/16/19 12:36 06/16/19 12:36 06/16/19 12:36 06/16/19 12:36 06/16/19 12:36 Procedures - Splinting Splint Location: Right: Ankle Pre-Proc Neuro Vasc Exam: normal Pre-Made Type: aircast Post-Proc Neuro Vasc Exam: normal Medical Decision Making - Medical Decision Making 06/16/19 15:46 No fractures on x-ray, patient does not want crutches, will put in an Aircast and have her follow-up with her orthopedist that did surgery on her, she cannot recall the name right now Discussed issues, findings, results, applicable medications and treatments and follow-up. All these were understood and all questions were answered *DC/Admit/Observation/Transfer Diagnosis at time of Disposition: Right ankle injury Qualifiers: Encounter type: initial encounter Qualified Code(s): S99.911A - Unspecified injury of right ankle, initial encounter - Discharge Dispostion Disposition: HOME Condition at time of disposition: Stable Decision to Admit order: No - Referrals Referrals: Addi Givens [Primary Care Provider] - - Patient Instructions Printed Discharge Instructions: DI for Ankle Sprain Additional Instructions: Elevate, wear splint You can apply ice for 20 minutes every 2 hours for the next 2 days Motrin 600 mg every 6 hours for pain. Call your orthopedist tomorrow - Post Discharge Activity
== END 2019-06-16 15:30 | disposition home or self-care (01) ==
LOC: JERFT 12:31
PROC: 2W3QX1Z Immobilization of Right Lower Leg using Splint (ICD-10-PCS; principal; 2019-06-16)
DX: S93.401A Sprain of unspecified ligament of right ankle, initial encounter (principal); X50.1XXA Overexertion from prolonged static or awkward postures, initial encounter; Y93.89 Activity, other specified; Y92.89 Other specified places as the place of occurrence of the external cause; Y99.8 Other external cause status
CPT/HCPCS: 73590-TC-RT-FY; 73610-TC-RT-FY; 73630-TC-RT-FY; 99281-25

== ENCOUNTER 2022-12-11 16:29 | Emergency (ER) | payer OTHER ==
[2022-12-11 16:53] VITALS: BP 103/60; PULSE 88; RESP 18; TEMP 98.5; BMI 39.9
== END 2022-12-11 18:41 | disposition home or self-care (01) ==
LOC: JERFT 16:29 → JER 16:29 → JERFT 18:41
DX: U07.1 COVID-19 (principal); R07.0 Pain in throat
CPT/HCPCS: 87070; 87651; 99283-25